=== PATIENT | female | born 1995 | race American Indian/Alaskan Native ===

== ENCOUNTER 2021-11-11 18:09 | Emergency (ER) | payer SELFPAY ==
--- NOTE | 2021-11-11 18:34 | Event Note ---
ED Screening Note ED Screening Note: pelvic pain for two days sore throat, rhinorrhea, headache took an OTC test and reports positive LNMP august 15 no fever +nausea/vomiting no diarrhea no bleeding no dysuria no pmhx no allergies to meds /P:0/A:1 This initial assessment/diagnostic orders/clinical plan/treatment(s) is/are subject to change based on patients health status, clinical progression and re- assessment by fellow clinical providers in the ED. Further treatment and workup at subsequent clinical providers discretion. Patient/guardian urged not to elope from the ED as their condition may be serious if not clinically assessed and managed. Initial orders include: labs, UA if hcg is elevated will order US
[2021-11-11 19:26] LABS: Basophils % (Auto) 0.5 % (0.0-1.8); Eosinophils # (Auto) 0.1 K/mm3 (0.0-0.4); Eosinophils % (Auto) 1.6 % (0.0-4.3); Hematocrit 35.1 % (30.3-42.9); Hemoglobin 11.6 gm/dl (10.1-14.3); Lymphocytes % (Auto) 20.6 % (13.4-35.0); Mean Corpuscular HGB Conc 33 % (30-34); Mean Corpuscular Volume 80 fl (79-97); Monocytes # (Auto) 0.7 K/mm3 (0.0-0.8); Monocytes % (Auto) 15.4 % (0.0-7.3); Platelet Count 222 K/mm3 (140-440); Red Blood Count 4.37 M/mm3 (3.65-5.03); Red Cell Distribution Width 13.4 % (13.2-15.2)
[2021-11-11 19:44] LABS: Alanine Aminotransferase 49 units/L (7-56); Albumin 4.2 g/dL (3.9-5); Blood Urea Nitrogen 12 mg/dL (7-17); Calcium 9.2 mg/dL (8.4-10.2); Hemolysis Index 30
[2021-11-11 19:45] LABS: BUN/Creatinine Ratio 30
--- NOTE | 2021-11-11 21:18 | Ultrasound Report ---
ULTRASOUND OBSTETRIC INDICATION / CLINICAL INFORMATION: , pelvic pain, last cycle august. TECHNIQUE: Transabdominal. COMPARISON: None available. FINDINGS: GESTATIONAL SAC: Well-defined oval shape and intrauterine in location. YOLK SAC: No significant abnormality. EMBRYO/FETUS: No significant abnormality. - [place]-Rump Length = 4.8 cm = 11, for weeks, days - Heart Rate, beats per minute (if present) = 152 ADNEXA: Right ovary is not visualized. Left ovary is unremarkable. FREE FLUID: None. ADDITIONAL FINDINGS: None. IMPRESSION: 1. Single, living intrauterine with estimated sonographic age of 11, 4 weeks, days. Contin ued clinical surveillance and sonographic follow-up is recommended as clinically indicated. Signer Name: Wolfgang Gaming MD Signed: 11/11/2021 9:13 PM Workstation Name: [id number]
[2021-11-11 23:57] LABS: Bacteria,Urine 1+ /HPF (Negative); Bilirubin,Urine NEG (Negative); Blood,Urine NEG (Negative); Color,Urine Yellow (Yellow); Mucus,Urine 3+ /HPF; Protein,Urine <15 mg/dL mg/dL (Negative); Urobilinogen,Urine < 2.0 mg/dL (<2.0)
--- NOTE | 2021-11-12 00:26 | Emergency Department Report ---
ED General Adult HPI - General Stated complaint: POSS PREG Source: patient, RN notes reviewed Limitations: No Limitations - History of Present Illness Initial comments: Pt presents for pelvic pain for two days ,sore throat, rhinorrhea, headache,took an OTC test and reports positive, LNMP august 15 ,no fever +nausea/vomiting, no diarrhea,no bleeding ,no dysuria no pmhx, no allergies to meds , /P:0/A:1 - Related Data Previous Rx's Medication Instructions Recorded Last Taken Type Acetaminophen [Acetaminophen TAB] 650 mg PO Q6HR PRN #30 tablet 11/12/21 Unknown Rx Metoclopramide [Reglan] 10 mg PO TID PRN #30 tab 11/12/21 Unknown Rx diphenhydrAMINE [Benadryl CAP] 25 mg PO Q8HR PRN #30 capsule 11/12/21 Unknown Rx ED Review of Systems ROS: Stated complaint: POSS PREG Other details as noted in HPI Constitutional: denies: chills, fever Eyes: denies: eye pain, eye discharge, vision change ENT: ear pain, throat pain, congestion. denies: epistaxis Respiratory: cough. denies: shortness of breath, wheezing Cardiovascular: denies: chest pain, palpitations Endocrine: no symptoms reported Gastrointestinal: denies: abdominal pain, nausea, vomiting, diarrhea Genitourinary: denies: urgency, dysuria, frequency, discharge Musculoskeletal: denies: back pain, joint swelling, arthralgia Skin: denies: rash, lesions Neurological: denies: headache, weakness, paresthesias Psychiatric: denies: anxiety, depression Hematological/Lymphatic: denies: easy bleeding, easy bruising ED Past Medical Hx - Medications Home Medications: Home Medications Medication Instructions Recorded Confirmed Last Taken Type Acetaminophen [Acetaminophen TAB] 650 mg PO Q6HR PRN #30 tablet 11/12/21 Unknown Rx Metoclopramide [Reglan] 10 mg PO TID PRN #30 tab 11/12/21 Unknown Rx diphenhydrAMINE [Benadryl CAP] 25 mg PO Q8HR PRN #30 capsule 11/12/21 Unknown Rx ED Physical Exam - General General appearance: alert, in no apparent distress - Head Head exam: Present: normocephalic, normal inspection - Eye Eye exam: Present: normal appearance, EOMI Pupils: Present: normal accommodation - ENT ENT exam: Present: normal orophraynx, mucous membranes moist, TM's normal bilaterally, normal external ear exam - Expanded ENT Exam Expanded Throat exam: Negative: tonsillar erythema, tonsillomegaly, tonsillar exudate, R peritonsillar mass, L peritonsillar mass - Neck Neck exam: Present: normal inspection, full ROM. Absent: tenderness, lymphadenopathy - Respiratory Respiratory exam: Present: normal lung sounds bilaterally. Absent: respiratory distress, wheezes, stridor, chest wall tenderness - Cardiovascular Cardiovascular Exam: Present: regular rate, normal rhythm, normal heart sounds. Absent: systolic murmur, diastolic murmur, rubs, gallop - GI/Abdominal GI/Abdominal exam: Present: soft, normal bowel sounds. Absent: distended, tenderness, bruit, hernia - Rectal Rectal exam: Present: deferred - Extremities Exam Extremities exam: Present: normal inspection, full ROM. Absent: tenderness - Back Exam Back exam: Present: normal inspection, full ROM. Absent: CVA tenderness (R), CVA tenderness (L) - Neurological Exam Neurological exam: Present: alert, oriented X3, CN II-XII intact - Expanded Neurological Exam Expanded Patient oriented to: Present: person, place, time Best Eye Response (Marcellus): (4) open spontaneously Best Motor Response (Dr[place]): (6) obeys commands Best Verbal Response (Marcellus): (5) oriented Marcellus Total: 15 - Psychiatric Psychiatric exam: Present: normal affect, normal mood - Skin Skin exam: Present: warm, dry, intact, normal color. Absent: rash ED Medical Decision Making - Lab Data Result diagrams: 11/11/21 19:01 11/11/21 19:01 Labs 11/11/21 11/11/21 11/11/21 19:01 19:01 19:01 WBC 4.8 RBC 4.37 Hgb 11.6 Hct 35.1 MCV 80 MCH 27 L MCHC 33 RDW 13.4 Plt Count 222 Lymph % (Auto) 20.6 [place] % (Auto) 15.4 H Eos % (Auto) 1.6 Baso % (Auto) 0.5 Lymph # (Auto) 1.0 L [place] # (Auto) 0.7 Eos # (Auto) 0.1 Baso # (Auto) 0.0 Seg Neutrophils % 61.9 Seg Neutrophils # 2.9 Sodium 134 L Potassium 3.5 L Chloride 100.4 Carbon Dioxide 21 L Anion Gap 16 BUN 12 Creatinine 0.4 L Estimated GFR > 60 BUN/Creatinine Ratio 30 Glucose 102 H Calcium 9.2 Total Bilirubin < 0.20 AST 40 ALT 49 Alkaline Phosphatase 88 Total Protein 6.7 Albumin 4.2 Albumin/Globulin Ratio 1.7 HCG, Quant 79546 H Urine Color Urine Turbidity Urine pH Ur Specific [place] Urine Protein Urine Glucose (UA) Urine Ketones Urine Blood Urine Nitrite Urine Bilirubin Urine Urobilinogen Ur Leukocyte Esterase Urine WBC (Auto) Urine RBC (Auto) U Epithel Cells (Auto) Urine Bacteria (Auto) Urine Mucus 11/11/21 Unknown WBC RBC Hgb Hct MCV MCH MCHC RDW Plt Count Lymph % (Auto) [place] % (Auto) Eos % (Auto) Baso % (Auto) Lymph # (Auto) [place] # (Auto) Eos # (Auto) Baso # (Auto) Seg Neutrophils % Seg Neutrophils # Sodium Potassium Chloride Carbon Dioxide Anion Gap BUN Creatinine Estimated GFR BUN/Creatinine Ratio Glucose Calcium Total Bilirubin AST ALT Alkaline Phosphatase Total Protein Albumin Albumin/Globulin Ratio HCG, Quant Urine Color Yellow Urine Turbidity Clear Urine pH 5.0 Ur Specific [place] 1.027 Urine Protein <15 mg/dl Urine Glucose (UA) Neg Urine Ketones Neg Urine Blood Neg Urine Nitrite Neg Urine Bilirubin Neg Urine Urobilinogen < 2.0 Ur Leukocyte Esterase Neg Urine WBC (Auto) 1.0 Urine RBC (Auto) 2.0 U Epithel Cells (Auto) 2.0 Urine Bacteria (Auto) 1+ Urine Mucus 3+ - Radiology Data Radiology results: report reviewed, image reviewed ULTRASOUND OBSTETRIC INDICATION / CLINICAL INFORMATION: , pelvic pain, last cycle august. TECHNIQUE: Transabdominal. COMPARISON: None available. FINDINGS: GESTATIONAL SAC: Well-defined oval shape and intrauterine in location. YOLK SAC: No significant abnormality. EMBRYO/FETUS: No significant abnormality. - [place]-Rump Length = 4.8 cm = 11, for weeks, days - Heart Rate, beats per minute (if present) = 152 ADNEXA: Right ovary is not visualized. Left ovary is unremarkable. FREE FLUID: None. ADDITIONAL FINDINGS: None. IMPRESSION: 1. Single, living intrauterine with estimated sonographic age of 11, 4 weeks, days. Continued clinical surveillance and sonographic follow-up is recommended as clinically indicated. Signer Name: Wolfgang Sarmiento MD Signed: 11/11/2021 9:13 PM Workstation Name: [id number] Transcribed By: SB Dictated By: WOLFGANG SARMIENTO MD Electronically Authenticated By: WOLFGANG SARMIENTO MD Signed Date/Time: 11/11/212112 - Medical Decision Making US OB: Single IUP 11 weeks and 4 days. FHR 152, CBC normal, UA normal, this is a positive secondary diagnosis URI clear plan DC to home, follow-up with [facility] in 2 to 3 days. Return to emergency department if symptoms worsen. Patient verbalized agreement and understanding with discharge plan. Patient will be DC'd home in stable condition at this time. Critical care attestation.: If time is entered above; I have spent that time in minutes in the direct care of this critically ill patient, excluding procedure time. ED Disposition Clinical Impression: Qualifiers: Weeks of gestation: 11 weeks Qualified Code(s): Z3A.11 - 11 weeks gestation of URI (upper respiratory infection) Qualifiers: URI type: unspecified URI Qualified Code(s): J06.9 - Acute upper respiratory infection, unspecified Disposition: 01 HOME / SELF CARE / HOMELESS Is pt being admited?: No Does the pt Need Aspirin: No Condition: Stable Instructions: Viral Respiratory Infection, First Trimester of Additional Instructions: Take all medications as prescribed, follow-up with [facility] in 2 to 3 days. Follow-up with your primary care doctor in 2 to 3 days. Return to emergency department if your symptoms worsen. Prescriptions: Acetaminophen [Acetaminophen TAB] 650 mg PO Q6HR PRN #30 tablet PRN Reason: Pain diphenhydrAMINE [Benadryl CAP] 25 mg PO Q8HR PRN #30 capsule PRN Reason: congestion Metoclopramide [Reglan] 10 mg PO TID PRN #30 tab PRN Reason: Nausea And Vomiting Referrals: FIGUEROA CABRERA MD [Staff Physician] - 3-5 Days Forms: Work/School Release Form(ED) Time of Disposition: 00:41
== END 2021-11-12 01:00 | disposition home or self-care (01) ==
LOC: ED 18:09
DX: O99.511 Diseases of the respiratory system complicating pregnancy, first trimester (principal); Z3A.11 11 weeks gestation of pregnancy; J06.9 Acute upper respiratory infection, unspecified
CPT/HCPCS: 36415; 76801; 80053; 81001; 84702; 85025; 99284

== ENCOUNTER 2021-11-18 12:54 | Emergency (ER) | payer SELFPAY ==
[2021-11-18] MEDS ORDERED: ACETAMINOPHEN 500 MG TAB PO ONE (20:49)
[2021-11-18] MEDS ORDERED: FAMOTIDINE 20 MG/2 ML INJ IV ONE (20:49)
[2021-11-18] MEDS ORDERED: PROCHLORPERAZINE EDISYLATE 10 MG/2 ML VIAL IV ONE (20:49)
[2021-11-18] MEDS ORDERED: SODIUM CHLORIDE 0.9% 1000 ML 1,000 ML IV ONE (20:49)
[2021-11-18 21:14] LABS: Basophils % (Auto) 0.3 % (0.0-1.8); Eosinophils # (Auto) 0.1 K/mm3 (0.0-0.4); Eosinophils % (Auto) 0.8 % (0.0-4.3); Hematocrit 37.4 % (30.3-42.9); Hemoglobin 12.2 gm/dl (10.1-14.3); Lymphocytes # (Auto) 2.4 K/mm3 (1.2-5.4); Lymphocytes % (Auto) 27.9 % (13.4-35.0); Mean Corpuscular HGB Conc 33 % (30-34); Mean Corpuscular Volume 81 fl (79-97); Monocytes # (Auto) 0.8 K/mm3 (0.0-0.8); Monocytes % (Auto) 9.4 % (0.0-7.3); Platelet Count 284 K/mm3 (140-440); Red Blood Count 4.59 M/mm3 (3.65-5.03); Red Cell Distribution Width 13.3 % (13.2-15.2)
[2021-11-18 21:26] LABS: Alanine Aminotransferase 158 units/L (7-56); Albumin 4.2 g/dL (3.9-5); Blood Urea Nitrogen 9 mg/dL (7-17); Calcium 9.2 mg/dL (8.4-10.2); Hemolysis Index 17
[2021-11-18 21:34] LABS: BUN/Creatinine Ratio 23
[2021-11-18 22:16] VITALS: BP 122/74
--- NOTE | 2021-11-19 06:31 | Emergency Department Report ---
- General Chief Complaint: Upper Respiratory Infection Stated Complaint: COVID/DIZZY/COUGHING/SOB Source: patient Mode of arrival: Ambulatory Limitations: No Limitations - History of Present Illness Initial Comments: Patient is a 26-year-old -Citizen Of [place] female with no past medical history presented to ED with complaint of acute onset persistent nasal and sinus congestion, persistent dry cough, nausea and vomiting for the last 2 weeks intermittently, worse in the last 4 days. Patient states that she is A0 and is approximately 12 weeks gestation. Patient states that she has not been able to keep anything down and now feels generally weak and fatigue. Patient denies fever, chills, dizziness, syncope, chest pain, shortness of breath, abdominal pain, back pain, cough, change in vision or dizziness. MD Complaint: cough, rhinorrhea, nasal congestion, sinus pain, other (nausea and vomiting; generalized weakness) -: Sudden, week(s) (2) Severity: moderate Severity scale (0 -10): 4 Quality: dull, aching Consistency: intermittent Improves With: nothing Worsens With: nothing Context: sick contacts Associated Symptoms: myalgias, headache, rhinorrhea, nasal congestion, nausea, vomiting. denies: sore throat, stiff neck, cough, chest pain, shortness of breath, abdominal pain, diarrhea, dysuria, rash, confusion, right sweats, weight loss, hoarseness, ear pain - Related Data Previous Rx's Medication Instructions Recorded Last Taken Type Acetaminophen [Acetaminophen TAB] 650 mg PO Q6HR PRN #30 tablet 11/12/21 Unknown Rx Metoclopramide [Reglan] 10 mg PO TID PRN #30 tab 11/12/21 Unknown Rx diphenhydrAMINE [Benadryl CAP] 25 mg PO Q8HR PRN #30 capsule 11/12/21 Unknown Rx Allergies Allergy/AdvReac Type Severity Reaction Status Date / Time No Known Allergies Allergy Verified 11/18/21 20:40 ED Review of Systems ROS: Stated complaint: COVID/DIZZY/COUGHING/SOB Other details as noted in HPI Constitutional: chills, malaise, weakness Eyes: denies: eye pain, eye discharge, vision change ENT: congestion. denies: ear pain, throat pain, dental pain, hearing loss Respiratory: cough. denies: shortness of breath, wheezing Cardiovascular: denies: chest pain, palpitations Endocrine: no symptoms reported Gastrointestinal: nausea, vomiting. denies: abdominal pain, diarrhea, constipation, hematemesis, hematochezia Genitourinary: denies: urgency, dysuria, discharge Musculoskeletal: denies: back pain, joint swelling, arthralgia Skin: denies: rash, lesions Neurological: denies: headache, weakness, paresthesias Psychiatric: denies: anxiety, depression Hematological/Lymphatic: denies: easy bleeding, easy bruising ED Past Medical Hx - Social History Smoking Status: Never Smoker Substance Use Type: None - Medications Home Medications: Home Medications Medication Instructions Recorded Confirmed Last Taken Type Acetaminophen [Acetaminophen TAB] 650 mg PO Q6HR PRN #30 tablet 11/12/21 11/18/21 Unknown Rx Metoclopramide [Reglan] 10 mg PO TID PRN #30 tab 11/12/21 11/18/21 Unknown Rx diphenhydrAMINE [Benadryl CAP] 25 mg PO Q8HR PRN #30 capsule 11/12/21 11/18/21 Unknown Rx ED Physical Exam - General Limitations: No Limitations General appearance: alert, in no apparent distress - Head Head exam: Present: atraumatic, normocephalic, normal inspection - Eye Eye exam: Present: normal appearance, PERRL, EOMI Pupils: Present: normal accommodation - ENT ENT exam: Present: normal orophraynx, mucous membranes moist, TM's normal bilaterally, normal external ear exam, other (Grossly congested nasal passages) - Neck Neck exam: Present: normal inspection, full ROM. Absent: tenderness - Respiratory Respiratory exam: Present: normal lung sounds bilaterally. Absent: respiratory distress, wheezes, rales, stridor, chest wall tenderness, accessory muscle use, decreased breath sounds - Cardiovascular Cardiovascular Exam: Present: regular rate, normal rhythm, normal heart sounds. Absent: systolic murmur, diastolic murmur, rubs, gallop - GI/Abdominal GI/Abdominal exam: Present: soft, normal bowel sounds. Absent: tenderness, guarding, rebound, hyperactive bowel sounds, hypoactive bowel sounds, organomegaly - Extremities Exam Extremities exam: Present: normal inspection, full ROM, normal capillary refill. Absent: tenderness, pedal edema, joint swelling, calf tenderness - Back Exam Back exam: Present: normal inspection, full ROM. Absent: tenderness, CVA tenderness (R), CVA tenderness (L), muscle spasm, paraspinal tenderness - Neurological Exam Neurological exam: Present: alert, oriented X3, CN II-XII intact, normal gait, reflexes normal - Psychiatric Psychiatric exam: Present: normal affect, normal mood - Skin Skin exam: Present: warm, dry, intact, normal color. Absent: rash ED Course Vital Signs 11/18/21 11/18/21 11/18/21 14:20 20:41 20:43 Temperature 97.9 F 98.2 F Pulse Rate 95 H 71 Respiratory 16 16 Rate Blood Pressure 122/69 Blood Pressure 130/81 [Right] O2 Sat by Pulse 99 99 99 Oximetry 11/18/21 22:15 Temperature 98.2 F Pulse Rate 72 Respiratory 16 Rate Blood Pressure Blood Pressure 122/74 [Right] O2 Sat by Pulse 99 Oximetry ED Medical Decision Making - Lab Data Result diagrams: 11/18/21 20:52 11/18/21 20:52 - Medical Decision Making This is a 26-year-old -Citizen Of [place] female with no past medical history presented to ED with complaint of acute onset persistent nasal and sinus congestion, persistent dry cough, nausea and vomiting for the last 2 weeks intermittently, worse in the last 4 days. Patient states that she is A0 and is approximately 12 weeks gestation. Patient states that she has not been able to keep anything down and now feels generally weak and fatigue. In the ED, patient is alert and oriented x3 and is not in any distress. Lab test results were reviewed and are all nonactionable except for mild hyponatremia 133 mmol/L and elevated transaminitis. Patient received antiemetics, antacids, and also receive normal saline 1 L IV bolus x1. Patient however signed out AMA after receiving IV fluids. - Differential Diagnosis Viral gastroenteritis; dehydration; UTI; URI; Critical care attestation.: If time is entered above; I have spent that time in minutes in the direct care of this critically ill patient, excluding procedure time. ED Disposition Clinical Impression: Acute upper respiratory infection, Hyperemesis gravidarum Disposition: 07 LEFT AGAINST MEDICAL ADVICE Is pt being admited?: No Does the pt Need Aspirin: No Condition: Undetermined Referrals: PRIMARY CARE, [Primary Care Provider] - 3-5 Days Forms: AMA Form
== END 2021-11-18 22:15 | disposition left against medical advice (07) ==
LOC: ED 12:54
DX: O99.511 Diseases of the respiratory system complicating pregnancy, first trimester (principal); O21.0 Mild hyperemesis gravidarum; Z3A.12 12 weeks gestation of pregnancy
CPT/HCPCS: 36415; 80053; 84703; 85025; 96361; 96374; 96375; 99283; J0780; J3490; J7030; Q0162